=== PATIENT | female | born 1960 | race Caucasian/White ===

== ENCOUNTER 2024-01-02 06:41 | Day surgery (SDC) | payer MEDICARE ==
[~2024-01-02] VITALS: Ht 165.1 cm; Wt 67.7 kg
[~2024-01-02 06:41] MED LIST: CALCIUM 500 MG1 EAC2; CALCIUM PO; ESTRADIOL PV; FEMRING; MULVITMIND PO; OMEP20ER PO; VITAMIN D PO
[2024-01-02] MEDS ORDERED: FERROUS SULFATE (07:12)
[2024-01-02] MEDS ORDERED: VITAMIN C (07:13)
[2024-01-02] MEDS ORDERED: Lactated Ringer's 1,000 ML IV ONE ×2 (07:26→07:36)
[2024-01-02] MEDS ORDERED: propofoL 50 ML IV ONE (07:36)
[2024-01-02 08:59] VITALS: BP 107/58
== END 2024-01-02 08:45 | disposition home or self-care (01) ==
LOC: ORSCSDS 06:41
PROVIDERS: Internal Medicine Gastroenterology
PROC: 0DB48ZX Excision of Esophagogastric Junction, Via Natural or Artificial Opening Endoscopic, Diagnostic (ICD-10-PCS; principal; 2024-01-02 08:00)
DX: K90.0 Celiac disease (principal); K31.7 Polyp of stomach and duodenum; K21.9 Gastro-esophageal reflux disease without esophagitis; Z86.010 Personal history of colon polyps; D50.9 Iron deficiency anemia, unspecified; Z83.719 Family history of colon polyps, unspecified; Z79.899 Other long term (current) drug therapy
CPT/HCPCS: 88305; J2704; J7120

== ENCOUNTER 2024-02-06 07:39 | Day surgery (SDC) | payer MEDICARE ==
[~2024-02-06] VITALS: Ht 165.1 cm; Wt 67.7 kg
[~2024-02-06 07:39] MED LIST changes: +FERROUS SULFATE; +VITAMIN C
[2024-02-06] MEDS ORDERED: Estrace Vagin42.5 GM (07:50)
[2024-02-06] MEDS ORDERED: Vitamin D1000 UNI1 (07:54)
[2024-02-06] MEDS ORDERED: CALCIUM 600 +1 EA11 (07:54)
[2024-02-06] MEDS ORDERED: Crestor40 MG (07:54)
[2024-02-06] MEDS ORDERED: COGNIQUIL CAPS1 EACH (07:55)
[2024-02-06] MEDS ORDERED: propofoL 50 ML IV ONE (08:17)
[2024-02-06] MEDS ORDERED: Lactated Ringer's 1,000 ML IV ONE ×2 (08:17→08:42)
[2024-02-06] MEDS ORDERED: EPINEPhrine HCl 0.1 MG/ML 10ML SYR ONE (08:37)
[2024-02-06 09:39] VITALS: BP 103/67
== END 2024-02-06 09:29 | disposition home or self-care (01) ==
LOC: ORSCSDS 07:39
PROVIDERS: Internal Medicine Gastroenterology
PROC: 0DB68ZX Excision of Stomach, Via Natural or Artificial Opening Endoscopic, Diagnostic (ICD-10-PCS; principal; 2024-02-06 08:45)
DX: K90.0 Celiac disease (principal); K21.9 Gastro-esophageal reflux disease without esophagitis; K31.7 Polyp of stomach and duodenum; D50.9 Iron deficiency anemia, unspecified; Z87.891 Personal history of nicotine dependence; Z79.899 Other long term (current) drug therapy
CPT/HCPCS: 88305; J2704; J7120